=== PATIENT | female | born 1970 | race Caucasian/White ===

== ENCOUNTER 2020-03-22 05:35 | Day surgery (SDC) | payer OTHER, MEDICAID ==
[2020-03-22] VITALS (18 sets, daily range): BP systolic 110–140; BP diastolic 59–99
[~2020-03-22] VITALS: Ht 154.9 cm; Wt 104.3 kg
[~2020-03-22 05:35] MED LIST: ASCO100T12 PO; BIOT10004 PO; FURO-150 PO; IBUP-1986 PO; MULT-85 PO; POTA20PA40 PO; TRAM50TA2 PO; cefazolin/dext.iso 2gm/100ml 100 ML IV ONE; famotidine 20mg tablet PO ONE; ringers solution, lacted 1,000 ML IV SCH; tranexamic acid inj. 1,000 MG in normal saline 100 ML IV ONE; vancomycin 1,500 MG in NS 500ml IV soln IV ONE
[2020-03-22] MEDS ORDERED: epiNEPHrine 1 mg/ml inj ONE (07:22)
[2020-03-22] MEDS ORDERED: ketorolac trometh. 30mg/ml inj. ONE (07:22)
[2020-03-22] MEDS ORDERED: ROPIVAcaine 0.5% (5mg/ml) 30ml vial ONE ×2 (07:23→11:02)
[2020-03-22] MEDS ORDERED: Thrombin (Bovine) 5,000 unit vial TP ONE (07:23)
[2020-03-22] MEDS ORDERED: morphine 10mg/ml inj. ONE ×2 (07:23→10:32)
[2020-03-22] MEDS ORDERED: ceFAZolin 1000mg inj ONE (07:23)
[2020-03-22] MEDS ORDERED: vancomycin 1,000mg inj ONE (07:23)
[2020-03-22 08:23] LABS: BASOPHILS % (AUTO) 0.5 % (0-1); EOSINOPHILS # (AUTO) 0.1 X10'3 (0-0.9); EOSINOPHILS % (AUTO) 2.2 % (0-6); LYMPHOCYTES # (AUTO) 1.4 X10'3 (1.1-4.8); LYMPHOCYTES % (AUTO) 24.4 % (21-51); MEAN CORPUSCULAR HGB CONC 32.5 g/dL (33.0-36.5); MEAN CORPUSCULAR VOLUME 76.9 FL (78-98); MEAN PLATELET VOLUME 7.6 FL (7.4-10.4); MONOCYTES # (AUTO) 0.3 X10'3 (0-0.9); MONOCYTES % (AUTO) 6.3 % (2-12); NEUTROPHILS # (AUTO) 3.7 X10'3 (1.8-7.7); NEUTROPHILS % (AUTO) 66.6 % (42-75); PRE OP HEMATOCRIT 34.1 % (35.0-45.0); PRE OP HEMOGLOBIN 11.1 g/dL (12.0-16.0); PRE OP PLATELET COUNT 285 X10'3 (140-440); RED BLOOD COUNT 4.44 X10'6 (4.20-5.60); RED CELL DISTRIBUTION WIDTH 15.8 % (11.5-14.5)
[2020-03-22 08:25] LABS: ISTAT CREATININE 0.7 mg/dL (0.6-1.1); ISTAT HGB 11.9 g/dl (12.0-16.0); ISTAT IONIZED CALCIUM 1.17 mmol/L (1.03-1.32); ISTAT K 4.6 mmol/L (3.5-5.1); POC BUN/CREATININE RATIO 17.1 (6.6-38.0)
[2020-03-22 08:36] LABS: ALBUMIN 3.6 G/DL (3.4-5.0); ALKALINE PHOSPHATASE 97 IU/L (46-116); BLOOD UREA NITROGEN 12 MG/DL (7-18); BUN/CREATININE RATIO 16.2 (6.6-38.0); CALCIUM 8.5 MG/DL (8.5-10.1); CHLORIDE 106 MMOL/L (99-107); CREATININE 0.74 MG/DL (0.40-0.90); PRE OP ALT 17 U/L (30-65); PRE OP ANION GAP 5 (8-16); PRE OP AST 13 U/L (10-37); PRE OP BILIRUB, TOTAL 0.4 MG/DL (0.0-1.0); PRE OP GLUCOSE 115 MG/DL (70-104); PRE OP POTASSIUM 4.7 MMOL/L (3.4-5.1); PRE OP SODIUM 140 MMOL/L (135-145); TOTAL PROTEIN 7.2 G/DL (6.4-8.2); eGFR 83 ML/MIN
[2020-03-22] MEDS ORDERED: MIDAZolam 5mg/5ml vial ONE (08:40)
[2020-03-22] MEDS ORDERED: fentaNYL/PF 50MCG/1 ML 2ML syringe ONE (08:40)
[2020-03-22] MEDS ORDERED: propofol inj 20 ML IV ONE ×4 (09:01→10:45)
[2020-03-22] MEDS ORDERED: ringers solution, lacted 1,000 ML IV SCH (09:03)
[2020-03-22] MEDS ORDERED: morphine 4 MG/ML inj SYRINge IV PRN (09:05)
[2020-03-22] MEDS ORDERED: HYDROmorphone inj. 0.5 MG/0.5 ML DISP.SYRIN IV PRN ×3 (09:05→10:50)
[2020-03-22] MEDS ORDERED: acetaminophen 1,000mg/100ml IV 100 ML IV PRN (09:05)
[2020-03-22] MEDS ORDERED: meperidine/PF 25mg/ml syringe IV PRN (09:05)
[2020-03-22] MEDS ORDERED: proCHLORperazine 10 MG/2 ml inj IV PRN (09:05)
[2020-03-22] MEDS ORDERED: ondansetron/PF 4mg/2ml inj IV PRN ×2 (09:05→10:50)
[2020-03-22] MEDS ORDERED: morphine 2 MG/ML inj. syringe IV PRN (09:05)
[2020-03-22] MEDS ORDERED: ROPIVAcaine 0.2%/PF PUMP/bolus 550 ML ADDCANAL SCH (09:06)
[2020-03-22] MEDS ORDERED: ROPIVAcaine 0.2% (10 MG/5 ML) BOLUS INJECTION ADDCANAL PRN (09:10)
[2020-03-22] MEDS ORDERED: acetaminophen 1,000mg/100ml IV 100 ML IV ONE (09:53)
[2020-03-22] MEDS ORDERED: oxyCODONE IR 5mg (immed. release) tablet PO PRN (10:50)
[2020-03-22] MEDS ORDERED: diphenhydrAMINE 25mg capsule PO PRN ×2 (10:50)
[2020-03-22] MEDS ORDERED: acetaminophen 325mg tablet PO PRN (10:50)
[2020-03-22] MEDS ORDERED: magnesium hydroxide 30ml (MOM) UD suspension PO PRN (10:50)
[2020-03-22] MEDS ORDERED: bisacodyl 10mg suppository rectal RC PRN (10:50)
--- NOTE | 2020-03-22 11:27 | NUR ---
Received from OR via BED, accompanied by Anesthesiologi st DR ESPITIA and report given by Anesthesiologist. PT DROWSY, DENIES PAIN, LEFT KNEE W/DRSG, KNEE WRAP, ICE PACK, MADELYN DRAIN, CDI. GUTIERREZ CATHETER TO GRAVITY DRAINAGE W/YELLOW URINE IN DRAINAGE BAG. Addendum: 03/22/20 at 1217 by Eloisa Burnett RN Amended: Links added.
[2020-03-22] MEDS ORDERED: traMADol 50MG tablet PO PRN (11:30)
--- NOTE | 2020-03-22 13:07 | NUR ---
GUTIERREZ CATHETER D/CD, Report called to receiving nurse. Transferred via BED BY MAURY Hooks/Zhane BAG OF Belongings. Special Issues communicated to receiving nurse. YES. Addendum: 03/22/20 at 1312 by Eloisa Burnett RN Amended: Links added.
[2020-03-22] MEDS ORDERED: ONQPUMP ADDCANAL (13:43)
[2020-03-22] MEDS ORDERED: tranexamic acid 1gm/0.7% sal. 100 ML IV ONE (13:50)
[2020-03-22] MEDS ORDERED: acetaminophen 325mg tablet PO SCH (14:00)
--- NOTE | 2020-03-22 16:34 | NUR ---
Patient states she voided when up to BR with PT. Denies pain, ON Q at 4ml/hr. Dressing cdi. 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 Report off to Lamar ROSS
--- NOTE | 2020-03-22 16:35 | NUR ---
received report from ayah connell
[2020-03-22] MEDS ORDERED: ASPI-1 PO (17:05)
--- NOTE | 2020-03-22 17:31 | NUR ---
PT D/C WITH INSTRUCTIONS, UNDERSTANDING OF INSTRUCTIONS AND W/ALL BELONGINGS IN WHEELCHAIR ACCOMPANIED BY NURSING STAFF TO PRIVATE VEHICLE TO GO HOME AND F/U W/SURGEON PT D/C WITH POWDER PACKS, ISLAND DRESSING, EDUCATION ON ON Q PUMP AND EDUCATE ABOUT MADELYN DRESSING
[2020-03-22] MEDS ORDERED: sennosides 8.6mg tablet PO SCH (21:00)
[2020-03-23] MEDS ORDERED: furosemide 20MG tablet PO SCH (08:00)
[2020-03-23] MEDS ORDERED: potassium Cl 20 mEq SR tablet PO SCH (08:00)
[2020-03-23] MEDS ORDERED: aspirin 325mg tablet PO SCH (08:30)
[2020-03-23] MEDS ORDERED: celeCOXIB 100mg capsule PO SCH (20:00)
[2020-03-23] MEDS ORDERED: OXYC-145 PO (22:25)
[2020-03-24] MEDS ORDERED: acetaminophen 325mg tablet PO PRN (10:50)
== END 2020-03-22 17:30 | disposition home or self-care (01) ==
LOC: PAS 05:35 → ORTHO 4S 10:49 → UNDOADMOB 10:49 → ORTHO 4S 14:48 → PAS 17:30
PROVIDERS: ATTEND Orthopaedic Surgery
DX: M17.12 Unilateral primary osteoarthritis, left knee (principal); I50.9 Heart failure, unspecified; F32.9 Major depressive disorder, single episode, unspecified; F41.9 Anxiety disorder, unspecified; D64.89 Other specified anemias; G89.18 Other acute postprocedural pain; E66.9 Obesity, unspecified; Z68.41 Body mass index [BMI] 40.0-44.9, adult; Z87.891 Personal history of nicotine dependence; Z88.5 Allergy status to narcotic agent; Z88.8 Allergy status to other drugs, medicaments and biological substances; Z91.09 Other allergy status, other than to drugs and biological substances; Z79.899 Other long term (current) drug therapy; Z11.59 Encounter for screening for other viral diseases
CPT/HCPCS: 27446; 36415; 64448; 80053; 82948; 85025; 87081; 87635; 97161; 97530; C1713; C1758; C1776; C9250; J0131; J0171; J0690; J1885; J2250; J2270; J2405; J2704; J2795; J3010; J3370; J7040; J7050; J7120; 80047; A4215; A4618; A7000; G0378

== ENCOUNTER 2020-03-23 21:52 | Emergency (ER) | payer OTHER, MEDICAID ==
[~2020-03-23] VITALS: Ht 154.9 cm; Wt 108.0 kg
[~2020-03-23 21:52] MED LIST changes: +ASPI-1 PO; +ONQPUMP ADDCANAL; -cefazolin/dext.iso 2gm/100ml 100 ML IV ONE; -famotidine 20mg tablet PO ONE; -ringers solution, lacted 1,000 ML IV SCH; -tranexamic acid inj. 1,000 MG in normal saline 100 ML IV ONE; -vancomycin 1,500 MG in NS 500ml IV soln IV ONE
[2020-03-23] MEDS ORDERED: oxyCODONE/APAP 10/325mg tablet PO ONE (22:10)
[2020-03-23] MEDS ORDERED: OXYC-145 PO (22:25)
[2020-03-23 22:46] VITALS: BP 127/57
== END 2020-03-23 22:49 | disposition home or self-care (01) ==
LOC: ER 21:53
DX: G89.18 Other acute postprocedural pain (principal); M25.562 Pain in left knee; Z96.652 Presence of left artificial knee joint; Z48.00 Encounter for change or removal of nonsurgical wound dressing; Z98.890 Other specified postprocedural states; Z88.8 Allergy status to other drugs, medicaments and biological substances; Z79.82 Long term (current) use of aspirin; Z79.899 Other long term (current) drug therapy
CPT/HCPCS: 99283